=== PATIENT | female | born 1985 | race Hispanic/Latino ===

== ENCOUNTER 2019-05-27 02:05 | Emergency (ER) | payer OTHER ==
[~2019-05-27] VITALS: Ht 175.3 cm; Wt 117.2 kg
[2019-05-27] MEDS ORDERED: IBUPROFEN 200 MG TAB ONE (04:04)
[2019-05-27] MEDS ORDERED: CEFTRIAXONE SOD 500 MG VIAL IM ONE (04:30)
[2019-05-27] MEDS ORDERED: IBUPROFEN 600 MG TAB PO SCH (04:30)
[2019-05-27] MEDS ORDERED: CEFTRIAXONE SOD 1 GM VIAL ONE (05:12)
== END 2019-05-27 05:33 | disposition home or self-care (01) ==
LOC: FSED 02:05
DX: K64.8 Other hemorrhoids (principal); K59.00 Constipation, unspecified; E11.9 Type 2 diabetes mellitus without complications
CPT/HCPCS: 99282; J0696

== ENCOUNTER 2021-09-02 09:02 | Emergency (ER) | payer OTHER ==
[~2021-09-02] VITALS: Ht 177.8 cm; Wt 120.2 kg
[2021-09-02] MEDS ORDERED: NAPROSYN500 MG PO (10:26)
[2021-09-02] MEDS ORDERED: CYCLOBENZAPRINE10 MG PO (10:27)
== END 2021-09-02 10:37 | disposition home or self-care (01) ==
LOC: FSED 10:00
DX: M54.50 Low back pain, unspecified (principal); E11.9 Type 2 diabetes mellitus without complications
CPT/HCPCS: 99282